=== PATIENT | female | born 1960 | race Caucasian/White ===

== ENCOUNTER 2024-08-16 06:04 | Emergency (ER) | payer OTHER, SELFPAY ==
[2024-08-16 06:12] VITALS: BP 135/86
--- NOTE | 2024-08-16 06:17 | ED.GENMED ---
History of Present Illness
General
Chief Complaint: Abdominal Symptoms
Time Seen by Provider: 08/16/24 06:17
History of Present Illness
History of Present Illness:
TIME OF INITIAL ENCOUNTER: 6:25 AM
HPI: The patient presents with excessive diarrhea. This started 5 days ago while she was in [place]. She had C. difficile over 30 years ago and this feels somewhat similar. She has tried Imodium without much success. Over a month ago, she had 2
days of antibiotics. She has no fevers or blood in the stool. She has no significant abdominal pain. She feels generally weak.
EXAM:
GENERAL: Well appearing in no distress
HEENT: Moist oral mucosa
CARDIOVASCULAR: No murmurs, tachycardic heart rate, regular rhythm, No chest wall tenderness
PULMONARY: No respiratory distress, breath sounds are clear and equal
ABDOMEN: Soft with no peritoneal signs, minimal if any diffuse abdominal tenderness
NEUROLOGIC: Excellent strength all extremities, no coordination deficits
PSYCHIATRIC: Appropriate mental status, normal insight and judgement
EXTREMITIES: Nontender, no edema, moves all extremities equally
SKIN: No rash, no lesions
NUMBER AND COMPLEXITY OF PROBLEMS ADDRESSED AT THE ENCOUNTER
� Chronic conditions affecting care: Hypothyroidism
� Acute Exacerbation and/or Progression of Chronic Illness: This is an acute problem
� Differential Diagnosis includes: Infectious diarrhea, colitis, IBD, medication related, hypothyroidism
AMOUNT AND/OR COMPLEXITY OF DATA TO BE REVIEWED AND ANALYZED
� I performed an independent evaluation of and my interpretation is:
EKG:
CT:
X-rays:
Laboratory Studies: White count 12.0, hemoglobin normal, bicarb slightly low however the creatinine and potassium are normal; C. difficile positive
Other:
� Review of other/old records: No old records available for review in [facility]
� Clinical information was obtained by an independent historian: None needed
� Prescriptions/Medications Considered but not given:
� Further testing considered but not performed:
RISK OF COMPLICATIONS AND/OR MORBIDITY OR MORTALITY OF PATIENT MANAGEMENT
� Social determinants of health affecting care: Lives at home
� Discussion with other providers:
� Escalation of care including admission/observation vs risk of discharge considered: Patient has 5 days of ongoing significant diarrhea. Therefore would be concerned that this could be more than just a simple viral infection or
gastroenteritis. Will try to obtain stool studies including C. difficile study. She arrives tachycardic and will give IV fluids. However overall she is well-appearing. Given the weakness with history of hypothyroidism we will also check TSH.
ANY OTHER UPDATES:
7 AM: Reviewed CBC
7:10 AM: Reviewed chemistries
8:20 AM: She is found to be C. difficile positive�vancomycin started.
8:40 AM: I reassessed patient; she is in no distress and feels somewhat improved after IV fluids were given
Phy Exam
Physical Exam
Physical Exam:
See HPI
Course
Orders/Labs/Results
Orders:
Orders
08/16/24 06:18
0.9% Sodium Chloride 1000 ml [Nss] 1,000 ml IV BOLUS
08/16/24 06:35
Basic Metabolic Panel Urgent
Complete Blood Count/With Diff Urgent
TSH Reflex To Free T4 Urgent
08/16/24 07:14
STOOL [C difficile Antigen & Toxins] Urgent
JESS Source: Feces/Stool
Specimen Description:
Date Specimen was Collected: 08/16/24
Time Specimen was Collected: 07:12
Stool Culture Urgent
JESS Source: Feces/Stool
Specimen Description:
Date Specimen was Collected: 08/16/24
Time Specimen was Collected: 07:12
08/16/24 08:28
Vancomycin HCl [Firvanq] 125 mg PO NOW STA
Abnormal Lab Results
08/16/24
06:35
WBC 12.0 H 10^3/uL
(4.8-10.8)
Abs Immat Gran (auto) 0.1 H 10^3/uL
(0-0.05)
Absolute Neuts (auto) 9.3 H 10^3/uL
(1.4-6.5)
Absolute Monos (auto) 0.9 H 10^3/uL
(0.1-0.6)
Neutrophils % 77.5 H %
(42.2-75.2)
Lymphocytes % 12.5 L %
(20.5-51.1)
Carbon Dioxide 19 L mmol/L
(22-30)
08/16/24 06:35
08/16/24 06:35
Vital Signs
Initial and Last Documented VS:
Initial Vital Signs
Temp Pulse Resp BP Pulse Ox
98.3 F 114 22 135/86 100
08/16/24 06:12 08/16/24 06:12 08/16/24 06:12 08/16/24 06:12 08/16/24 06:12
Last Documented Vital Signs
Temp Pulse Resp BP Pulse Ox
98.3 F 99 16 119/88 99
08/16/24 06:12 08/16/24 07:20 08/16/24 07:20 08/16/24 07:20 08/16/24 07:20
*Critical Care Note
Total Time (30-74mins, 75-104mins- exclusive of procedures): Not Applicable
ED Attending Note
-
Portions of this chart may have been created with voice recognition software.� Occasional wrong word or��sound alike� substitutions may have occurred due to the inherent limitations of voice recognition software.
Discharge Plan
Departure
Patient Disposition: Home (Routine Discharge)
Date of Disposition: 08/16/24
Time of Disposition: 08:35
Patient with high blood pressure during this ER visit?: Yes
Discharge Problem:
C. difficile diarrhea
Instructions: C. difficile infection
Prescriptions:
New
vancomycin 125 mg capsule
125 mg PO QID Qty: 56 0RF
Referrals:
PRIVATE,PHYSICIAN [Active] -
Activity Restrictions/Additional Instructions:
White blood cell count is slightly elevated, bicarb level is slightly low suggesting a little bit of dehydration however your kidney function and electrolytes are normal. Your thyroid testing is normal. Stool testing is positive for C. difficile.
I am placing you on vancomycin. Follow-up your primary care doctor.
Interventions
Interventions:
*Risk Screen - Suicide Last Done: 08/16/24 06:12
*General Assessment Last Done: 08/16/24 06:39
*Neglect/Abuse Screening Last Done: 08/16/24 06:12
ED- Fall Risk Assessment Last Done: 08/16/24 06:44
*ED COVID-19 Vaccine History Last Done: 08/16/24 06:39
OF-Npxvun-Dihiiesxkg Assessment Last Done: 08/16/24 06:44
Discharge Date and Time
Print Language: FINNISH
[2024-08-16 06:39] VITALS: BMI 25.3
[2024-08-16 06:41] VITALS: BP 140/93
[2024-08-16] MEDS: NSS 1000 IV (06:42)
[2024-08-16 06:56] LABS: % Basophils 0.5 % (0-2); % Immature Granulocytes 0.4 % (0-0.5); % Lymphocytes 12.5 % (20.5-51.1); % Monocytes 7.1 % (1.7-9.3); % Neutrophils 77.5 % (42.2-75.2); Absolute Basophils 0.1 10^3/uL (0-0.2); Absolute Eosinophils 0.2 10^3/uL (0-0.7); Absolute Immature Granulocytes 0.1 10^3/uL (0-0.05); Absolute Lymphocytes 1.5 10^3/uL (1.2-3.4); Absolute Monocytes 0.9 10^3/uL (0.1-0.6); Absolute Neutrophils 9.3 10^3/uL (1.4-6.5); Hematocrit 40.6 % (37.0-47.0); Hemoglobin 13.8 g/dL (12.0-16.0); Mean Corpuscular Hgb 28.5 pg (27.0-31.0); Mean Corpuscular Volume 83.9 fL (81.0-99.0); Mean Platelet Volume 9.1 fL (7.4-10.4); Nucleated Red Blood Cells % 0 %; Platelet Count 380 10^3/uL (130-400); Red Blood Cell Count 4.84 10^6/uL (4.20-5.40); Red Cell Dist. Width 13.6 % (11.5-14.5)
[2024-08-16 07:06] LABS: Blood Urea Nitrogen 15 mg/dl (7-17); Carbon Dioxide 19 mmol/L (22-30); Chloride 101 mmol/L (98-107); Estimated Creatinine Clearance 49 ml/min; Glucose 75 mg/dl (70-99); Potassium 4.3 mmol/L (3.5-5.1); Sodium 141 mmol/L (135-145); eGFR > 60.00
[2024-08-16 07:20] VITALS: BP 119/88
[2024-08-16 07:37] LABS: TSH Reflex To Free T4 3.37 uIU/ml (0.47-4.68)
[2024-08-16] MEDS: FIRVANQ 125 MG PO (08:44)
== END 2024-08-16 08:55 | disposition home or self-care (01) ==
LOC: EMR 06:04
PROVIDERS: EMERGENCY PHYSICIAN Emergency Medicine; FAMILY PHYSICIAN Family Medicine
DX: A04.72 Enterocolitis due to Clostridium difficile, not specified as recurrent (principal); E03.9 Hypothyroidism, unspecified
CPT/HCPCS: 96360; 96361; 99284; 80048; 84443; 85025; 87045; 87046; 87077; 87324; 87427; 87449